=== PATIENT | female | born 1960 | race Caucasian/White ===

== ENCOUNTER 2021-04-18 08:44 | Day surgery (SDC) | payer OTHER ==
[~2021-04-18 08:44] MED LIST: CYMBALTA60 MG PO; PROSOM PO; [UNRECOGNIZED DRUG - OTHER] PO
== END 2021-04-18 13:05 | disposition home or self-care (01) ==
LOC: AMB-ENDOS 08:44
PROVIDERS: ATTEND Surgery
DX: K62.1 Rectal polyp (principal); K64.8 Other hemorrhoids